=== PATIENT | male | born 1995 | race Hispanic/Latino ===

== ENCOUNTER 2020-10-21 21:12 | Emergency (ER) | payer SELFPAY | END 2020-10-21 22:30 | disposition home or self-care (01) | LOC: ERS 21:12 | DX: S63.287A Dislocation of proximal interphalangeal joint of left little finger, initial encounter (principal); J45.909 Unspecified asthma, uncomplicated; W21.05XA Struck by basketball, initial encounter | CPT/HCPCS: 26770 ==